=== PATIENT | male | born 1965 ===

== ENCOUNTER 2019-04-07 09:40 | Emergency (ER) | payer OTHER ==
[~2019-04-07] VITALS: Ht 177.8 cm; Wt 95.3 kg
== END 2019-04-07 14:24 | disposition home or self-care (01) ==
LOC: ER 09:40
DX: K43.9 Ventral hernia without obstruction or gangrene (principal)

== ENCOUNTER 2019-04-07 16:50 | Inpatient (IN) | payer OTHER ==
[~2019-04-07] VITALS: Ht 177.8 cm; Wt 95.3 kg
--- NOTE | 2019-04-07 17:10 | NUR ---
PACIENTE ALERTA Y ORIENTADO X3 QUIE FUE ATENDIDO EN LA MANANA DE HO[place] Y DADO DE CHRISTELLE REFIERE QUE CONTINUA CON DOLOR ABDOMINAL QUE SE SIENTE PEOR, SE NOTIFICA A DR. GORDON SE UBICA EN CUBICULO # 8 PARA EVALUACION MEDICA.
--- NOTE | 2019-04-07 17:34 | NUR ---
PACIENTE ALERTA Y ORIENTADO EVALUADO POR EL DR. GORDON SE ORIENTA A PACIENTE SOBRE TRATAMIENTO MEDICO SE EXTRAEN MUESTRAS DE JOHN Y SE ADMSINITRAN MEDICAMENTOS DONNIE ORDEN MEDICA BAJO MEDIDAS ASEPTICAS.
--- NOTE | 2019-04-07 23:12 | NUR ---
SE RECIBE PTE ALERTA Y ORIENTADO X3 EN JAMES CON BARANDAS ELEVADAS. SE RECIBE PTE CANALIZADO AREA RENU DE EDEMA Y DE ENROJECIMIENTO. PTE EN ESPERA DE CONSULTA CON DR. CLAUDIA MARY.
--- NOTE | 2019-04-08 07:10 | NUR ---
PACIENTE ALERTA Y ORIENTADO POR JOSSUE ESFERAS EN CAMA CON BARANDAS ELEVADAS. SE OBSERVA IVF'S PATENTE RENU DE EDEMA Y ENROJECIMIENTO BAJANDO UN .9NSS @ 125ML/HR. PENDIENTE DR. CLAUDIA MARY EVALUE NUEVAMENTE A PACIENTE.
== END 2019-04-11 11:43 | disposition home or self-care (01) | DRG 355 ==
LOC: ER 16:50 → SEC-K 04-08 13:04 → SURH 04-08 13:04 → O/R 04-08 14:31 → SEC-K 04-08 15:14 → SURH 04-08 17:53
PROVIDERS: ADMIT Surgery
PROC: 0WUF4JZ Supplement Abdominal Wall with Synthetic Substitute, Percutaneous Endoscopic Approach (ICD-10-PCS; principal; 2019-04-09 09:30)
DX: K43.6 Other and unspecified ventral hernia with obstruction, without gangrene (principal)